=== PATIENT | male | born 1995 | race African-American/Black ===

== ENCOUNTER 2019-12-13 16:02 | Emergency (ER) | payer MEDICARE, OTHER ==
[~2019-12-13] VITALS: Ht 160 cm; Wt 83.5 kg
[~2019-12-13 16:02] MED LIST: ABILIFY5 MG PO; ADDERALL XR 2020 MG PO; AMITRIPTYLINE H25 MG PO; VALIUM5 MG PO; ZOLOFT50 MG PO
--- NOTE | 2019-12-13 17:58 | Emergency Department Note ---
History of Present Illnes History of Present Illness Chief Complaint: Eye, Ear, Nose, Throat, Dental History of Present Illness This is a 24 year old male HERE FOR POSSIBLE EXPOSURE TO COVID AT SPECIAL NEEDS DAY CARE, UNKNOWN TIME FRAME. MOM STATES THAT 3 DAYS AGO HE HAD FEVER X 1 INSTANCE OF 100.2. DENIES COUGH, FEVER, NAUSEA, VOMITING, DIARRHEA ASIDE FROM HIS USUAL. Historian: Family Member (MOTHER) History limited by: condition of the patient (AUTISTIC) [employer] Required: No Onset (how long ago): day(s) (3 D AGO) Radiation: Reports non-radiation Severity: mild Progression: resolved Chronicity: new Context: Denies recent illness Relieving factors: none Exacerbating factors: none Associated symptoms: Reports denies other symptoms, Reports other (MOM STATES IT'S HARD SINCE HE IS NON-VERBAL) Past Medical/Family History Physician Review I have reviewed the patient's past medical and family history. Any updates have been documented here. Past Medical History Recent Fever: Yes Clinical Suspicion of Infectio: No New/Unexplained Change in Ment: No Past Medical History: GERD Other Medical History: AUTISTIC, NON VERBAL, PICA - SWALLOWING OBJECTS Other Surgery: COLONOSCOPY Social History Smoking Cessation: Never Smoker Counseling Performed: No Alcohol Use: None Any Illegal Drug Use: No TB Exposure/Symptoms: No Physically hurt or threatened: No Other Last Tetanus: UNKNOWN Any Pre-Existing Lines (PICC,: No Is patient up to date on immun: No Last Flu: UNK Last Pneumovax: UNK Review of Systems Review of Systems Constitutional: Reports no symptoms EENTM: Reports no symptoms Cardiovascular: Reports no symptoms Respiratory: Reports no symptoms Gastrointestinal: Reports no symptoms Genitourinary: Reports no symptoms Musculoskeletal: Reports no symptoms Integumentary: Reports no symptoms Neurological: Reports no symptoms Psychological: Reports no symptoms Endocrine: Reports no symptoms Hematological/Lymphatic: Reports no symptoms Physical Exam Related Data Allergies: Coded Allergies: No Known Allergies (Unverified , 05/29/17) Triage Vital Signs Vital Signs Date Time Temp Pulse Resp B/P (MAP) Pulse Ox O2 Delivery O2 Flow Rate FiO2 12/13/19 16:18 98.0 78 16 128/82 97 Vital signs reviewed: Yes Physical Exam CONSTITUTIONAL Constitutional: Present well-developed, Present other (NON-VERBAL BUT COOPERATIVE) HENT HENT: Present normocephalic, Present atraumatic, Present oropharynx clear/moist, Present nose normal HENT L/R: Present left ext ear normal, Present right ext ear normal EYES Eyes: Reports PERRL, Reports conjunctivae normal NECK Neck: Present ROM normal PULMONARY Pulmonary: Present effort normal, Present breath sounds normal CARDIOVASCULAR Cardiovascular: Present regular rhythm, Present heart sounds normal, Present capillary refill normal, Present normal rate GASTROINTESTINAL Abdominal: Present soft, Present nontender, Present bowel sounds normal GENITOURINARY Genitourinary: Present exam deferred SKIN Skin: Present warm, Present dry MUSCULOSKELETAL Musculoskeletal: Present ROM normal NEUROLOGICAL Neurological: Present alert, Present oriented x 3, Present no gross motor or sensory deficits PSYCHOLOGICAL Psychological: Present other (FOLLOWS COMMANDS) Results Laboratory Laboratory Laboratory Tests Test 12/13/19 16:35 Assessment & Plan Medical Decision Making MDM MOM JUST WANTS COVID TEST - WILL DO SWAB Reassessment Reassessment [place] HOME Assessment & Plan Final Impression: (1) Normal exam (2) Autism Depart Disposition: HOME, SELF-CARE Last Vital Signs Date Time Temp Pulse Resp B/P (MAP) Pulse Ox O2 Delivery O2 Flow Rate FiO2 12/13/19 16:18 98.0 78 16 128/82 97 Home Meds Reported Medications Amitriptyline Hcl (AMITRIPTYLINE HCL) 25 Mg Tablet, 100 MG PO HS PRN for INSOMNIA, #30 TAB 05/29/17 Amphet Asp/Amphet/D-Amphet (ADDERALL XR 20 MG CAPSULE) 20 Mg Cap.er.24h, 20 MG PO DAILY 05/29/17 Aripiprazole (ABILIFY) 5 Mg Tablet, 20 MG PO DAILY, #30 TAB 05/29/17 Diazepam (VALIUM) 5 Mg Tablet, 5 MG PO BID PRN for ANXIETY 05/29/17 Sertraline Hcl (ZOLOFT) 50 Mg Tablet, 50 MG PO DAILY, #30 TAB 05/29/17 LEEANN WILSON MD Dec 13, 2019 17:58
== END 2019-12-13 16:45 | disposition home or self-care (01) ==
LOC: ER 16:02
DX: Z03.818 Encounter for observation for suspected exposure to other biological agents ruled out (principal); F84.0 Autistic disorder; K21.9 Gastro-esophageal reflux disease without esophagitis
CPT/HCPCS: 87635; 99282

== ENCOUNTER → 2021-11-16 | Outpatient (RCR) | payer MEDICARE | LOC: PT 08:53 | PROVIDERS: ATTEND Student in an Organized Health Care Education/Training Program | DX: M54.9 Dorsalgia, unspecified (principal); Z91.81 History of falling; R26.9 Unspecified abnormalities of gait and mobility; F84.0 Autistic disorder ==

== ENCOUNTER 2021-11-23 07:54 | Outpatient (RCR) | payer MEDICARE | END 2021-12-16 | LOC: PT 07:54 | PROVIDERS: ATTEND Student in an Organized Health Care Education/Training Program | DX: M54.9 Dorsalgia, unspecified (principal); R26.9 Unspecified abnormalities of gait and mobility; W19.XXXA Unspecified fall, initial encounter; Z91.81 History of falling; F84.0 Autistic disorder | CPT/HCPCS: 97139 ==